=== PATIENT | female | born 1990 | race American Indian/Alaskan Native ===

== ENCOUNTER 2019-02-03 02:54 | Emergency (ER) | payer SELFPAY ==
[2019-02-03 03:24] VITALS: BP 124/79
== END 2019-02-03 08:10 | disposition left against medical advice (07) ==
LOC: ED 02:54
DX: R10.30 Lower abdominal pain, unspecified (principal); Z53.21 Procedure and treatment not carried out due to patient leaving prior to being seen by health care provider